=== PATIENT | female | born 1950 | race African-American/Black ===

== ENCOUNTER 2019-06-28 21:35 | Observation (INO) ==
[2019-06-28] MEDS ORDERED: Aspirin 81 MG TAB.CHEW PO STA (22:28)
[2019-06-28] MEDS ORDERED: Nitroglycerin 0.4 MG TAB.SUBL SL PRN (22:28)
[2019-06-28] MEDS ORDERED: *HR* HYDROcodone/Acet 5/325 mg TABLET PO ONE (22:44)
[2019-06-28 22:59] LABS: Basophils % 0.4 %; Eosinophils % 0.7 %; Hematocrit 40.3 % (35.3-44.9); Hemoglobin 12.5 g/dL (11.5-15.4); Immature Granulocytes % 0.2 % (0-4); Lymphocytes % 20.9 %; Mean Corpuscular Hemoglobin 28.6 pg (28.0-33.3); Mean Corpuscular Volume 92.2 fL (83.0-100.0); Mean Platelet Volume 11.1 fL (9.4-12.4); Monocytes # 0.8 K/mcL (0.0-1.3); Monocytes % 17.4 %; Neutrophils # 2.7 K/mcL (1.6-8.9); Platelet Count 181 K/mcL (140-400); Red Blood Count 4.37 M/mcL (3.82-4.97); Red Cell Distribution Width 12.1 % (11.5-14.5); Segmented Neutrophils % 60.4 %; White Blood Count 4.5 K/mcL (4.3-11.1)
[2019-06-28 23:20] LABS: BUN/Creatinine Ratio 22 (6-26); Blood Urea Nitrogen 17 mg/dL (8-23); Calcium 9.4 mg/dL (8.6-10.3); Carbon Dioxide 29 mEq/L (23-29); Chloride 103 mEq/L (98-107); Glucose 78 mg/dL (70-105); Osmolality,Calculated 284 (280-300); Potassium 3.8 mEq/L (3.5-5.1); Sodium 137 mEq/L (136-145); eGFR For African Americans > 60 (> 60); eGFR For Non-African Americans > 60 (> 60)
[2019-06-28 23:21] LABS: Troponin I < 0.03 ng/mL (< 0.04)
[2019-06-29] MEDS ORDERED: Naloxone 0.4 MG/ML INJ IVP PRN (04:12)
[2019-06-29 05:21] LABS: Hemoglobin 11.7 g/dL (11.5-15.4); Mean Corpuscular HGB Conc 31.6 g/dL (31.6-35.5); Mean Corpuscular Hemoglobin 28.1 pg (28.0-33.3); Mean Corpuscular Volume 88.7 fL (83.0-100.0); Mean Platelet Volume 11.3 fL (9.4-12.4); Platelet Count 157 K/mcL (140-400); Red Blood Count 4.17 M/mcL (3.82-4.97); Red Cell Distribution Width 12.2 % (11.5-14.5); White Blood Count 3.9 K/mcL (4.3-11.1)
[2019-06-29 05:33] LABS: BUN/Creatinine Ratio 25 (6-26); Blood Urea Nitrogen 16 mg/dL (8-23); Calcium 8.8 mg/dL (8.6-10.3); Carbon Dioxide 30 mEq/L (23-29); Chloride 103 mEq/L (98-107); Glucose 119 mg/dL (70-105); Osmolality,Calculated 288 (280-300); Potassium 3.3 mEq/L (3.5-5.1); Sodium 138 mEq/L (136-145); eGFR For African Americans > 60 (> 60); eGFR For Non-African Americans > 60 (> 60)
[2019-06-29 06:38] LABS: INR 1.8; Prothrombin Time 20.7 Seconds (9.4-12.1)
[2019-06-29] MEDS ORDERED: Levothyroxine 25 MCG TABLET PO SCH (08:22)
[2019-06-29 12:04] VITALS: BP 128/64
[2019-06-29] MEDS ORDERED: Warfarin perPT PO PRN (18:00)
[2019-06-29] MEDS ORDERED: *HR* Warfarin 10 MG TABLET PO ONE (18:00)
== END 2019-06-29 14:44 | disposition home or self-care (01) ==
LOC: 3BNU 21:35 → EMEROOARM 21:35 → SUATTDRO 06-29 01:18 → 3BNU 06-29 02:10
PROVIDERS: ADMIT Family Medicine; ATTEND Internal Medicine